=== PATIENT | female | born 1990 ===

== ENCOUNTER 2018-04-07 15:30 | Emergency (ER) | payer BC ==
[2018-04-07 15:37] VITALS: TEMP 98; BMI 19.2
--- NOTE | 2018-04-07 19:38 | PDOC ---
History of Present Illness - General Chief Complaint: Pain Stated Complaint: ABD PAIN History Source: Patient Exam Limitations: No Limitations - History of Present Illness Initial Comments: 04/07/18 19:30 27 year old woman with no past medical history who presents with diffuse intermittent nonradiating 3-4 mid abdominal period-like cramping since having a positive home urine test this AM and reports that she came to the ED to confirm her . The patient also reports some vague nausea symptoms 1 week ago. Denies vomiting, diarrhea, constipation, fever, recent travel, recent illness or infection. LNMP: 02/27/2018. Denies chest pain, shortness of breath, dysuria or hematuria. Denies use of contraceptive including BCP, IUD, implenon. Patient has no other complaints at bedside. Meds: Vit D PCP: Jose Past History - Past Medical History Allergies/Adverse Reactions: Allergies Allergy/AdvReac Type Severity Reaction Status Date / Time No Known Allergies Allergy Verified 04/07/18 15:38 COPD: No - Suicide/Smoking/Psychosocial Hx Smoking History: Never smoked Review of Systems - Review of Systems Able to Perform ROS?: Yes Is the patient limited [place]ic proficient: No Constitutional: No: Chills, Diaphoresis, Fever Respiratory: No: Cough, Orthopnea, Shortness of Breath Cardiac (ROS): No: Chest Pain, Palpitations, Syncope : No: Burning, Dysuria, Incontinence Musculoskeletal: No: Back Pain, Muscle Weakness, Neck Pain Neurological: No: Headache, Numbness, Tingling *Physical Exam - Vital Signs Last Vital Signs Temp Pulse Resp BP Pulse Ox 98 F 94 H 18 89/55 L 100 04/07/18 15:32 04/07/18 15:32 04/07/18 15:32 04/07/18 15:32 04/07/18 15:32 - Physical Exam Comments: 04/07/18 20:36 GENERAL: Awake, alert, and fully oriented, in no acute distress HEAD: No signs of trauma, normocephalic, atraumatic EYES: EOMI, sclera anicteric, conjunctiva clear ENT: oropharynx clear without exudates. Moist mucosa NECK: Normal ROM, supple LUNGS: No distress, speaks full sentences, clear to auscultation bilaterally HEART: Regular rate and rhythm, normal S1 and S2, no murmurs, rubs or gallops, peripheral pulses normal and equal bilaterally. ABDOMEN: Soft, nontender, No guarding, no rebound. No masses EXTREMITIES : Normal inspection, Normal range of motion, no edema. No clubbing or cyanosis. NEUROLOGICAL: Cranial nerves II through XII grossly intact. Normal speech, normal gait, no focal sensorimotor deficits SKIN: Warm, Dry, normal turgor, no rashes or lesions noted Moderate Sedation - Procedure Monitoring Vital Signs: Procedure Monitoring Vital Signs Temperature 98 F 04/07/18 15:32 Pulse Rate 94 H 04/07/18 15:32 Respiratory Rate 18 04/07/18 15:32 Blood Pressure 89/55 L 04/07/18 15:32 O2 Sat by Pulse Oximetry (%) 100 04/07/18 15:32 ED Treatment Course - LABORATORY CBC & Chemistry Diagram: 04/07/18 20:00 04/07/18 20:00 Medical Decision Making - Medical Decision Making 04/07/18 19:38 27 year old woman with no past medical history who presents with diffuse intermittent nonradiating 3-4 mid abdominal period-like cramping since having a positive home urine test this AM and reports that she came to the ED to confirm her . The patient also reports some vague nausea symptoms 1 week ago. Denies vomiting, diarrhea, constipation, fever, recent travel, recent illness or infection. LNMP: 02/27/2018. Denies chest pain, shortness of breath, dysuria or hematuria. Denies use of contraceptive including BCP, IUD, implenon. Patient has no other complaints at bedside. ED Course: Patient mainly desires confirmation of . All symptoms resolved. Will order cbc, cmp, beta-hcg 04/07/18 20:37 Patient with concern about MMR vaccine in November 2017. Per CDC guidelines, pts should avoid 28 days after vaccination. Patient informed of this information and that MMR vaccination at this time does not pose significant risk to possible . 04/07/18 21:32 Patient does not desire IVF cbc, cmp unremarkable + serum Patient informed of results has OBGYN follow up arranged. Patient stable for discharge. Informed of all lab and imaging results. Given follow up instructions and strict return precautions. Patient expressed understanding and agree to plan. *DC/Admit/Observation/Transfer Diagnosis at time of Disposition: - Discharge Dispostion Disposition: HOME Condition at time of disposition: Stable Decision to Admit order: No - Referrals Referrals: Martir Blanco MD [Primary Care Provider] - David Heard MD [Staff Physician] - Jessica Falk MD [Staff Physician] - - Patient Instructions Printed Discharge Instructions: DI for Abdominal Pain -- Early Additional Instructions: You were seen in the ED for complaints of mild mid abdominal cramping and home positive test. In the ED you were evaluated with labwork. Your results showed positive serum . There does not appear to be an acute need for immediate hospitalization. You are advised to follow up with your Primary Care Physician and your OBGYN within 1 week. You were given a referral to OBGYN if you are unable to schedule an appointment with your OBGYN within 1 week. Return to the ED immediately if you experience worsening abdominal cramping, vaginal discharge or bleeding, excessive nausea or vomiting, fevers, chest pain or shortness of breath. - Post Discharge Activity
--- NOTE | 2018-04-07 20:24 | PDOC ---
Attending Attestation - HPI HPI: 04/07/18 21:55 The patient is a 27 year old female with no significant PMH who presents to the emergency department with abdominal pain for about 2 days. The patient reports that her her abdominal pain is like a cramping pain , 4-10 in severity. She states that she took a positive at home test . she reports some associated intermittent nausea with her symptoms. She denies denies any history of . the patient states that her lmp was 02/27/18. She denies any other symptoms or complaints. - Physicial Exam PE: 04/07/18 21:55 GENERAL: Awake, alert, and fully oriented, in no acute distress HEAD: No signs of trauma EYES: PERRLA, EOMI, sclera anicteric, conjunctiva clear ENT: Auricles normal inspection, hearing grossly normal, nares patent, oropharynx clear without exudates. Moist mucosa NECK: Normal ROM, supple, no lymphadenopathy, JVD, or masses LUNGS: Breath sounds equal, clear to auscultation bilaterally. No wheezes, and no crackles HEART: Regular rate and rhythm, normal S1 and S2, no murmurs, rubs or gallops ABDOMEN: Soft, nontender, normoactive bowel sounds. No guarding, no rebound. No masses EXTREMITIES: Normal range of motion, no edema. No clubbing or cyanosis. No cords, erythema, or tenderness NEUROLOGICAL: Cranial nerves II through XII grossly intact. Normal speech, normal gait SKIN: Warm, Dry, normal turgor, no rashes or lesions noted. Documentation prepared by Ronen French, acting as hospital medical assistant for Kristen Ziegler MD. <Ronen French - Last Filed: 04/07/18 21:55> - Resident Resident Name: Tashia Singleton - ED Attending Attestation I have performed the following: I have examined & evaluated the patient, The case was reviewed & discussed with the resident, I agree w/resident's findings & plan - Medical Decision Making 04/07/18 21:56 Pt states that she had abd cramping and she wanted to find out if she is . Pt is A negative blood type.; she understands that she needs rhoGAM if she has vaginal bleeding in preg. She has no vag bleed today; she has no vag bleed on our exam either 04/08/18 20:36 Labs normal; preg positive; she has a UTI and will be treated; she will be referred to one of Ob/GYNs 04/08/18 20:37 BP low, but normal for patient and she is eating and drinking well and well hydrated. <Kristen Ziegler - Last Filed: 04/08/18 20:37>
[2018-04-07] MEDS ORDERED: SODIUM CHLORIDE 0.9% 500 ML INFUS.BAG IV ONE (20:25)
[2018-04-07 20:53] LABS: BASO % 0.7 % (0-2.0); EOS % 0.9 % (0-4.5); HEMATOCRIT 37.5 % (32.4-45.2); HEMOGLOBIN 12.5 GM/dL (10.7-15.3); LYMPH % 31.8 % (8-40); MCH 30.5 pg (25.7-33.7); MCHC 33.4 g/dl (32.0-36.0); MEAN CELL VOLUME 91.6 fl (80-96); MEAN PLT VOLUME 7.5 fl (7.5-11.1); MONO % 7.1 % (3.8-10.2); NEUT % 59.5 % (42.8-82.8); PLATELET COUNT 244 K/MM3 (134-434); RBC 4.09 M/mm3 (3.60-5.2); RDW 12.2 % (11.6-15.6); WHITE BLOOD COUNT 9.8 K/mm3 (4.0-10.0)
[2018-04-07 21:26] LABS: ALBUMIN 4.2 g/dl (3.4-5.0); ALK PHOS 45 U/L (45-117); ANION GAP 7 MMOL/L (8-16); BILIRUBIN,TOTAL 0.3 mg/dL (0.2-1); BLOOD UREA NITROGEN 12 mg/dL (7-18); CALCIUM 8.7 mg/dL (8.5-10.1); CHLORIDE 106 mmol/L (98-107); CO2 22 mmol/L (21-32); CREATININE 0.7 mg/dL (0.55-1.3); GLUCOSE,RANDOM 79 mg/dL (74-106); POTASSIUM 4.1 mmol/L (3.5-5.1); SGOT/AST 12 U/L (15-37); SGPT/ALT 13 U/L (13-61); SODIUM 136 mmol/L (136-145); TOT PROT 7.8 g/dl (6.4-8.2)
[2018-04-07 22:21] LABS: URINE APPEARANCE CLEAR; URINE BILIRUBIN NEGATIVE (<2.0 mg/dL); URINE COLOR LTYELLOW; URINE GLUCOSE (UA) NEGATIVE (NEGATIVE); URINE KETONE TRACE (NEGATIVE); URINE LEUK ESTERASE 3+ (NEGATIVE); URINE NITRITE NEGATIVE (NEGATIVE); URINE PROTEIN NEGATIVE (NEGATIVE); URINE UROBILINOGEN NEGATIVE mg/dL (0.2-1.0)
[2018-04-07 22:36] VITALS: BP 96/59; PULSE 84
[2018-04-07 22:36] LABS: EPI CELLS RARE /HPF (FEW); URINE BACTERIA RARE /hpf (NONE SEEN); URINE MUCUS RARE
[2018-04-07] MEDS ORDERED: NITROFURANTOIN MACROCRYSTAL 50 MG CAPSULE (FP) PO SCH (22:45)
== END 2018-04-07 22:37 | disposition home or self-care (01) ==
LOC: JER 15:30
DX: O26.891 Other specified pregnancy related conditions, first trimester (principal); R10.30 Lower abdominal pain, unspecified; R11.0 Nausea; Z3A.01 Less than 8 weeks gestation of pregnancy
CPT/HCPCS: 36415; 80053; 81003; 81015; 84702; 84703; 85025; 86850; 86900; 86901; 99282-25